=== PATIENT | male | born 1985 | race Caucasian/White ===

== ENCOUNTER 2022-10-08 08:29 | Outpatient (CLI) | payer BC, SELFPAY | END 2022-10-08 08:30 | disposition home or self-care (01) | PROVIDERS: PCP Internal Medicine; Visit Provider Internal Medicine | DX: Z00.00 Encounter for general adult medical examination without abnormal findings (principal); Z13.6 Encounter for screening for cardiovascular disorders | CPT/HCPCS: 80053; 80061 ==

== ENCOUNTER 2024-07-27 20:07 | Outpatient (CLI) | payer BC, SELFPAY ==
--- NOTE | 2024-08-09 12:02 | W.PM.SLEEP ---
Sleep Study Details Details Interpreting Provider: Yasmany Date of Sleep Study: 07/27/24 Sleep Study Details: STUDY TYPE:? Home unattended ? BMI:? 30.4 ORDERING PROVIDER:Pepe Jade INDICATION:? Concern about sleep apnea ? SLEEP SUMMARY:? 361 minutes monitored RESPIRATORY SUMMARY:? AHI 8.8, supine 32.7, left lateral 1.2, right lateral 3.8 Low oxygen 87 1.1% of study oxygen less than 90% Snoring 39.5% PERIODIC LIMB MOVEMENTS OF SLEEP:? Not recorded CARDIAC:? Range 50-108, mean 62.8 IMPRESSION:? Mild obstructive sleep apnea with severe apnea in the supine position RECOMMENDATION: Treatment options include trial of lateral sleep, CPAP, dental appliance and/or airway expansion surgery.
== END 2024-07-27 20:08 | disposition home or self-care (01) ==
LOC: SLEEP 20:15
PROVIDERS: PCP Internal Medicine; Visit Provider Otolaryngology
DX: G47.33 Obstructive sleep apnea (adult) (pediatric) (principal)
CPT/HCPCS: 95806